=== PATIENT | female | born 1985 | race African-American/Black ===

== ENCOUNTER 2019-03-17 00:49 | Observation (INO) | payer BC, MEDICAID ==
[~2019-03-17] VITALS: Ht 167.6 cm; Wt 142.9 kg
[2019-03-17] MEDS ORDERED: LACTATED RINGERS 1,000 ML IV SCH (02:00)
[2019-03-17 02:31] LABS: CLARITY URINE CLEAR (CLEAR); COLOR URINE YELLOW (YELLOW); KETONES URINE TRACE (NEGATIVE); LEUKOCYTE ESTERASE URINE NEGATIVE (NEGATIVE); NITRITE URINE NEGATIVE (NEGATIVE); OCCULT BLOOD URINE TRACE (NEGATIVE); PH URINE 5.5 (4.5-8.0); PROTEIN URINE NEGATIVE (NEGATIVE); SPECIFIC GRAVITY URINE 1.026 (1.005-1.030); UROBILINOGEN URINE 0.2 E.U./dL (0.2-1.0)
[2019-03-17] MEDS ORDERED: LACTATED RINGERS 1,000 ML IV ONE (04:00)
[2019-03-17] MEDS ORDERED: CEFAZOLIN 2,000 MG in DEXT 5% WATER 100 ML IV SCH (04:15)
[2019-03-17] MEDS ORDERED: PREN1TAB78 MT (04:27)
[2019-03-18] MEDS ORDERED: LACTATED RINGERS 1,000 ML IV SCH (02:00)
== END 2019-03-17 04:40 | disposition home or self-care (01) ==
LOC: 8 EST LDRP 00:49
PROVIDERS: ADMIT Obstetrics & Gynecology; ATTEND Obstetrics & Gynecology
DX: O26.893 Other specified pregnancy related conditions, third trimester (principal); R10.30 Lower abdominal pain, unspecified; Z3A.28 28 weeks gestation of pregnancy
CPT/HCPCS: 76805; 81003; 99281; G0378; 96360; J0690; J7060